=== PATIENT | male | born 2005 | race Caucasian/White ===

== ENCOUNTER 2024-09-29 09:23 | Emergency (ER) | payer SELFPAY ==
[2024-09-29] VITALS (7 sets, daily range): BP systolic 128–146; BP diastolic 78–86; PULSE 87–96; RESP 16–20; TEMP 36.6–36.8; O2SAT 98–100
--- NOTE | ~2024-09-29 | XR_ITS ---
EXAMINATION: XR chest 1V portable DATE: 09/29/2024 10:25 INDICATION: Lower limb edema TECHNIQUE: frontal view of the chest was obtained. COMPARISON: None FINDINGS: The lungs are clear with no focal airspace opacities, pulmonary edema, pleural effusion or pneumothor ax. The cardiomediastinal silhouette is normal. Visualized bones and soft tissues are unremarkable. IMPRESSION: 1. Normal chest radiograph. Reviewed, dictated and finalized at location A. IMPRESSION: 1. Normal chest radiograph.
--- NOTE | ~2024-09-29 | US_ITS ---
EXAMINATION: US venous doppler LE RT DATE: 09/29/2024 10:51 INDICATION: Right lower limb swelling TECHNIQUE: Grayscale ultrasound images without and with compression and Doppler ultrasound images of the right lower extremity veins were obtained. COMPARISON: None. FINDINGS: The visualized portions of right common femoral vein, profunda (deep) femoral vein, femoral vein, pop liteal vein, peroneal trunk, posterior tibial veins, peroneal veins, gastrocnemius vein and greater s aphenous vein outflow are patent. IMPRESSION: 1. No deep venous thrombosis in the right lower limb. Reviewed, dictated and finalized at location A.
[2024-09-29 09:50] LABS: Glucose Point of Care 332 mg/dl (65-105)
--- NOTE | 2024-09-29 10:15 | ED.GENADULT ---
HPI - General Adult General Chief complaint: Unspecified Stated complaint: Diabetic cramps Time Seen by Provider: 09/29/24 09:55 History of Present Illness HPI narrative: 18-year-old male with recent diagnosis of type 2 diabetes presented emergency department for evaluation for lower extremity swallowing and hand cramping. Patient states over the last 7 months he has gone from 350 lb to 270 lb. Patient does not have health insurance and is not on medications for his diabetes. Patient denies any chest pain or shortness of breath. Patient denies any injury of his right leg. Patient states leg was more swollen this morning but has improved some since. Related Data Allergies Allergy/AdvReac Type Severity Reaction Status Date / Time codeine Allergy Unknown Hallucinati Verified 09/29/24 09:30 ng divalproex sodium (From Allergy Unknown Hives Verified 09/29/24 09:30 Depakote) Review of Systems Review of Systems: All systems reviewed & are unremarkable except as noted in HPI and below Exam Narrative: APPEARANCE: Well appearing, no pain, no distress, well-nourished. HEAD: normocephalic, atraumatic. EYES: PERRLA/EOMI, conjunctivae clear. NOSE: Normal no drainage EARS:TMS clear with good light reflex. THROAT: Pharynx clear, no exudate. NECK: Supple. No adenopathy, no masses. RESPIRATORY: Airway patent, respirations nonlabored. Clear to auscultation bilaterally, no rales, rhonchi, wheezing. CARDIOVASCULAR: Regular rate and rhythm without murmurs rubs or gallops. ABDOMINAL: Soft, nontender, nondistended, normal bowel sounds MUSCULOSKELETAL: All right lower extremity edema nonpitting NEURO: Alert. Cranial nerves II through XII intact. Good gait. Good coordination SKIN: Warm, dry. Normal Color Course Vital Signs Vital signs: Vital Signs Temperature 97.8 F 09/29/24 09:26 Pulse Rate 92 09/29/24 09:26 Respiratory Rate 20 09/29/24 09:26 Blood Pressure 143/82 H 09/29/24 09:26 Pulse Oximetry 100 09/29/24 09:26 Oxygen Delivery Room Air 09/29/24 09:26 Temperature 98.0 F 09/29/24 13:55 Pulse Rate 93 09/29/24 13:55 Respiratory Rate 18 09/29/24 13:55 Blood Pressure 137/85 09/29/24 13:55 Pulse Oximetry 98 09/29/24 13:55 Oxygen Delivery Room Air 09/29/24 09:26 Medical Decision Making MDM Narrative Medical decision making narrative: 18-year-old male presents emergency department for evaluation for poorly controlled diabetes. Patient is homeless and was provided information for [place] [facility] and follow-up with medical physician. Patient is currently afebrile no leukocytosis hemoglobin of 14.2. Patient's blood sugar was elevated but did improved to 210. Patient's beta hydroxybutyrate was mildly elevated but patient was treated with 2 L of lactated Ringer's, IV insulin and patient had no anion gap. UA was negative for infection. Ultrasound was negative for DVT. Differential Diagnosis Differential Diagnosis: DKA, hyperglycemia, dehydration, cellulitis, DVT Vital Signs Vital Signs: Vital Signs Temperature 97.8 F 09/29/24 09:26 Pulse Rate 92 09/29/24 09:26 Respiratory Rate 20 09/29/24 09:26 Blood Pressure 143/82 H 09/29/24 09:26 Pulse Oximetry 100 09/29/24 09:26 Oxygen Delivery Room Air 09/29/24 09:26 Temperature 98.0 F 09/29/24 13:55 Pulse Rate 93 09/29/24 13:55 Respiratory Rate 18 09/29/24 13:55 Blood Pressure 137/85 09/29/24 13:55 Pulse Oximetry 98 09/29/24 13:55 Oxygen Delivery Room Air 09/29/24 09:26 Lab Data Lab results reviewed: Yes I reviewed the patient's lab results. 09/29/24 10:12 09/29/24 10:12 Labs: Lab Results 09/29/24 09/29/24 09/29/24 Range/Units 09:46 10:12 11:19 WBC 9.0 (4.5-10.0) K/mm3 RBC 4.80 (4.6-6.20) M/mm3 Hgb 14.2 (14.0-18.0) g/dL Hct 42.9 (42.0-52.0) % MCV 89.4 (80-100) fl MCH 29.6 (26-34) pg MCHC 33.1 (32-36) g/dl RDW 13.2 (11.5-14.5) % Plt Count 288 (150-375) k/mm3 MPV 10.5 H (7.4-10.4) fl Immature Gran % (Auto) 0.6 H (0-0.5) % Neut % (Auto) 68.3 (45.5-73.1) % Lymph % (Auto) 22.9 (18.3-44.2) % [place] % (Auto) 5.6 (2.6-8.5) % Eos % (Auto) 1.7 (0-4.4) % Baso % (Auto) 0.9 (0.2-1.2) % Lymph # (Auto) 2.07 (0.9-3.2) K/mm3 [place] # (Auto) 0.5 (0.1-0.6) K/mm3 Eos # (Auto) 0.2 (0-0.3) K/mm3 Baso # (Auto) 0.1 (0.0-0.1) K/mm3 Abs Immat Gran (auto) 0.05 H (0.00-0.031) K/mm3 Absolute Neuts (auto) 6.2 (1.3-6.7) K/mm3 Absolute Nucleated RBC 0.000 (0.0-0.012) K/mm3 Nucleated RBC % 0.0 (0.0-0.2) % Sodium 136 (134-143) mmol/L Potassium 4.2 (3.4-5.0) mmol/L Chloride 99 (98-107) mmol/L Carbon Dioxide 25 (22-30) mmol/L Anion Gap 12 (4-12) mmol/L BUN 8 (8-21) mg/dL Creatinine 0.44 L (0.7-1.3) mg/dL Estim Creat Clear Calc 291 ml/min Estimated GFR > 60 (59 - ) Glucose 327 H (65-110) mg/dL POC Capillary Glucose 332 H (65-105) mg/dl Lactic Acid 0.9 (0.7-2.0) mmol/L Calcium 8.6 L (8.9-10.7) mg/dL Magnesium 2.1 (1.6-2.3) mg/dL Total Bilirubin 0.5 (0.2-1.3) mg/dL AST 19 (17-59) U/L ALT 16 (6-50) U/L Alkaline Phosphatase 167 (58-237) U/L Total Protein 7.0 (6.3-8.6) g/dL Albumin 4.1 (3.7-5.6) g/dL Beta-Hydroxybutyrate/Acetoacetate 2.12 H (0.02-0.27) mmol/L Urine Color Yellow (Yellow) Urine Appearance Clear (Clear) Urine pH 7.0 (5.0-9.0) Ur Specific [place] 1.036 H (1.001-1.035) Urine Protein Negative (Negative) mg/dL Urine Glucose (UA) 3+ H (Negative) mg/dL Urine Ketones 4+ H (Negative) mg/dL Ur Blood (Man) Negative (Negative) Urine Nitrate Negative (Negative) Urine Bilirubin Negative (Negative) Urine Urobilinogen 1.0 (<2.0) mg/dL Leukocyte Esterase Rfl Negative (Negative) FELA/UL 09/29/24 09/29/24 09/29/24 Range/Units 11:56 13:04 13:34 WBC (4.5-10.0) K/mm3 RBC (4.6-6.20) M/mm3 Hgb (14.0-18.0) g/dL Hct (42.0-52.0) % MCV (80-100) fl MCH (26-34) pg MCHC (32-36) g/dl RDW (11.5-14.5) % Plt Count (150-375) k/mm3 MPV (7.4-10.4) fl Immature Gran % (Auto) (0-0.5) % Neut % (Auto) (45.5-73.1) % Lymph % (Auto) (18.3-44.2) % [place] % (Auto) (2.6-8.5) % Eos % (Auto) (0-4.4) % Baso % (Auto) (0.2-1.2) % Lymph # (Auto) (0.9-3.2) K/mm3 [place] # (Auto) (0.1-0.6) K/mm3 Eos # (Auto) (0-0.3) K/mm3 Baso # (Auto) (0.0-0.1) K/mm3 Abs Immat Gran (auto) (0.00-0.031) K/mm3 Absolute Neuts (auto) (1.3-6.7) K/mm3 Absolute Nucleated RBC (0.0-0.012) K/mm3 Nucleated RBC % (0.0-0.2) % Sodium (134-143) mmol/L Potassium (3.4-5.0) mmol/L Chloride (98-107) mmol/L Carbon Dioxide (22-30) mmol/L Anion Gap (4-12) mmol/L BUN (8-21) mg/dL Creatinine (0.7-1.3) mg/dL Estim Creat Clear Calc ml/min Estimated GFR (59 - ) Glucose (65-110) mg/dL POC Capillary Glucose 221 H 209 H 211 H (65-105) mg/dl Lactic Acid (0.7-2.0) mmol/L Calcium (8.9-10.7) mg/dL Magnesium (1.6-2.3) mg/dL Total Bilirubin (0.2-1.3) mg/dL AST (17-59) U/L ALT (6-50) U/L Alkaline Phosphatase (58-237) U/L Total Protein (6.3-8.6) g/dL Albumin (3.7-5.6) g/dL Beta-Hydroxybutyrate/Acetoacetate (0.02-0.27) mmol/L Urine Color (Yellow) Urine Appearance (Clear) Urine pH (5.0-9.0) Ur Specific [place] (1.001-1.035) Urine Protein (Negative) mg/dL Urine Glucose (UA) (Negative) mg/dL Urine Ketones (Negative) mg/dL Ur Blood (Man) (Negative) Urine Nitrate (Negative) Urine Bilirubin (Negative) Urine Urobilinogen (<2.0) mg/dL Leukocyte Esterase Rfl (Negative) FELA/UL Imaging Data Radiologist's impression: Impressions Chest X-Ray 09/29/24 10:49 IMPRESSION: 1. Normal chest radiograph. Venous Doppler Study 09/29/24 10:55 IMPRESSION: 1. No deep venous thrombosis in the right lower limb. Discharge Plan Discharge Clinical Impression: Hyperglycemia, Cramping of hands, Leg swelling Patient Disposition: Home Condition: Stable Instructions: Antibiotic Form, Diabetic Hyperglycemia (ED) Additional Instructions: Have close follow-up as outpatient. Follow a diabetic diet. If you have any worsening symptoms please call or return to the emergency department. Patient Language: Irish Follow-up/Referrals: Gabriel Colbert MD [Physician] - PHYSICIAN,[employer] [Primary Care Provider] -
[2024-09-29 10:18] LABS: Basophils Absolute Auto 0.1 K/mm3 (0.0-0.1); Basophils Percent Auto 0.9 % (0.2-1.2); Eosinophils Absolute Auto 0.2 K/mm3 (0-0.3); Eosinophils Percent Auto 1.7 % (0-4.4); Hematocrit 42.9 % (42.0-52.0); Hemoglobin 14.2 g/dL (14.0-18.0); Immature Granulocyte Absolute 0.05 K/mm3 (0.00-0.031); Immature Granulocyte Percent A 0.6 % (0-0.5); Lymphocytes Absolute Auto 2.07 K/mm3 (0.9-3.2); Lymphocytes Percent Auto 22.9 % (18.3-44.2); Mean Corpuscular HGB Conc 33.1 g/dl (32-36); Mean Corpuscular Hemoglobin 29.6 pg (26-34); Mean Corpuscular Volume 89.4 fl (80-100); Mean Platelet Volume 10.5 fl (7.4-10.4); Monocytes Absolute Auto 0.5 K/mm3 (0.1-0.6); Monocytes Percent Auto 5.6 % (2.6-8.5); Neutrophils Absolute Auto 6.2 K/mm3 (1.3-6.7); Neutrophils Percent Auto 68.3 % (45.5-73.1); Platelet Count Result 288 k/mm3 (150-375); Red Cell Distribution Width 13.2 % (11.5-14.5)
[2024-09-29] MEDS: LACTATED RINGERS 2,000 ML 999 ML IV CONT (10:22)
[2024-09-29 10:28] LABS: Lactic Acid Reflex 0.9 mmol/L (0.7-2.0)
[2024-09-29 10:35] LABS: Alanine Aminotransferase 16 U/L (6-50); Albumin Level 4.1 g/dL (3.7-5.6); Alkaline Phosphatase 167 U/L (58-237); Anion Gap 12 mmol/L (4-12); Aspartate Amino Transferase 19 U/L (17-59); Bilirubin,Total 0.5 mg/dL (0.2-1.3); Blood Urea Nitrogen 8 mg/dL (8-21); Calcium 8.6 mg/dL (8.9-10.7); Carbon Dioxide 25 mmol/L (22-30); Chloride 99 mmol/L (98-107); Estimated CRCL calculation 291 ml/min; Estimated Glomerular Filt Rate > 60; Glucose 327 mg/dL (65-110); Magnesium 2.1 mg/dL (1.6-2.3); Potassium 4.2 mmol/L (3.4-5.0); Sodium 136 mmol/L (134-143)
[2024-09-29 10:37] LABS: Beta-Hydroxybutyrate/Acetoacetate 2.12 mmol/L (0.02-0.27)
--- NOTE | 2024-09-29 10:44 | PCCCNOTE ---
Asked to assist the pt with insurance application d/t him currently being uninsured. Spoke to the pt, gave Medicaid, marketplace insurance contact information, local sliding scale clinics, medication coupons and assistance programs. Stated he is currently living out of his car in [facility]. Stated he would like to find housing and is agreeable to having CM supply a [facility] Housing application and contact information which was completed. Pt denies having any further needs/concerns at this time. ED provider updated on resources given.-arthur
[2024-09-29] MEDS: INSULIN HUMAN REGULAR (*BKC) 100 UNITS/ML 6 UNITS IV PUSH (10:56)
[2024-09-29 11:28] LABS: Add Urine Microscopic? NO; Appearance Urine Clear (Clear); Bilirubin Urine Negative (Negative); Blood Urine Negative (Negative); Color Urine Yellow (Yellow); Glucose Urine UA 3+ mg/dL (Negative); Ketones Urine 4+ mg/dL (Negative); Leukocyte Esterase Ur Negative LEU/UL (Negative); Nitrate Urine Negative (Negative); Protein Urine Negative (Negative); Specific Grav Ur 1.036 (1.001-1.035)
[2024-09-29 11:59] LABS: Glucose Point of Care 221 mg/dl (65-105)
[2024-09-29 13:06] LABS: Glucose Point of Care 209 mg/dl (65-105)
[2024-09-29 13:36] LABS: Glucose Point of Care 211 mg/dl (65-105)
== END 2024-09-29 13:55 | disposition home or self-care (01) ==
PROVIDERS: Emergency Provider Emergency Medicine
DX: E11.65 Type 2 diabetes mellitus with hyperglycemia (principal); R22.41 Localized swelling, mass and lump, right lower limb; R25.2 Cramp and spasm; Z59.00 Homelessness unspecified
CPT/HCPCS: 36415; 71045; 80053; 81003; 82010; 82948; 83605; 83735; 85025; 93971; 96361; 96374; 99284; J1815; J7120